=== PATIENT | female | born 1955 | race Caucasian/White ===

== ENCOUNTER 2017-03-15 15:39 | Outpatient (CLI) | payer BC | END 2017-03-15 15:40 | disposition home or self-care (01) | LOC: BICMAMMO 15:39 | PROVIDERS: ATTEND Family Medicine | DX: Z12.31 Encounter for screening mammogram for malignant neoplasm of breast (principal); R92.1 Mammographic calcification found on diagnostic imaging of breast | CPT/HCPCS: 77063; 77067 ==

== ENCOUNTER 2018-07-18 10:00 | Outpatient (CLI) | payer BC ==
--- NOTE | 2018-07-18 10:57 | MMO ---
Bilateral MAMMO Bilat Screen [facility]. CLINICAL HISTORY: Patient is 63 years old and is seen for screening. The patient has no family history of breast cancer. The patient has no personal history of cancer. The patient has a history of left Excisional Biopsy in 1992 - NEGATIVE. VIEWS: The views performed were: bilateral craniocaudal with tomosynthesis and bilateral mediolateral oblique with tomosynthesis. FILMS COMPARED: The present examination has been compared to prior imaging studies performed at [facility] on 01/01/2014, 01/04/2015, 01/06/2016 and 03/15/2017. MAMMOGRAM FINDINGS: There are scattered fibroglandular densities. There are benign appearing calcifications seen in both breasts. There are no suspicious masses, suspicious calcifications, or new areas of architectural distortion. IMPRESSION: THERE IS NO MAMMOGRAPHIC EVIDENCE OF MALIGNANCY. A ROUTINE FOLLOW-UP MAMMOGRAM IN 1 YEAR IS RECOMMENDED. THE RESULTS OF THIS EXAM WERE SENT TO THE PATIENT. ACR BI-RADS Category 2 - Benign finding MAMMOGRAPHY NOTE: 1. A negative mammogram report should not delay a biopsy if a dominant of clinically suspicious mass is present. 2. Approximately 10% to 15% of breast cancers are not detected by mammography. 3. Adenosis and dense breasts may obscure an underlying neoplasm.
== END 2018-07-18 10:01 | disposition home or self-care (01) ==
LOC: BICMAMMO 10:00
PROVIDERS: ATTEND Family Medicine
DX: Z12.31 Encounter for screening mammogram for malignant neoplasm of breast (principal)
CPT/HCPCS: 77063; 77067

== ENCOUNTER 2019-11-06 16:33 | Outpatient (CLI) | payer BC ==
--- NOTE | 2019-11-06 16:50 | RAD ---
XR Knee Rt 3 View HISTORY: Right knee pain FINDINGS: No fracture or dislocation is identified. A superior-anterior patellar enthesophyte is present. No shala int effusion is seen.
== END 2019-11-06 16:34 | disposition home or self-care (01) ==
LOC: BICRAD 16:33
PROVIDERS: ATTEND Family Medicine
DX: M25.561 Pain in right knee (principal); M76.9 Unspecified enthesopathy, lower limb, excluding foot

== ENCOUNTER 2020-06-17 10:51 | Outpatient (CLI) | payer MEDICARE ==
[2020-06-17 12:37] LABS: #Eosinphils 0.3 10x3/uL (0.0-0.5); #Monocytes 0.5 10x3/uL (0.0-1.1); #Neutrophils 3.2 10x3/uL (1.5-8.4); %Basophils 0.7 % (0.0-2.0); %Eosinophils 5.2 % (0.0-6.0); %Lymphocytes 26.9 % (18.0-47.0); %Monocytes 8.1 % (0.0-10.0); %Neutrophils 58.4 % (40.0-75.0); Hemoglobin 14.5 g/dL (12.0-15.5); Mean Corpuscular HGB CONC 34.6 g/dL (32.0-36.0); Mean Corpuscular Volume 92.5 fl (81.6-98.3); Platelet Count 265 10x3/uL (150-450); Red Blood Cell (RBC) Count 4.53 10x6/uL (3.90-5.03); White Blood Cell (WBC) Count 5.5 10x3/uL (3.5-10.5)
[2020-06-17 16:03] LABS: Anion Gap 17 mmol/L (10-20); BUN (Urea Nitrogen) 14 mg/dL (9.8-20.1); Calc. Creatinine Clearance 0 mL/min (70-130); Carbon Dioxide 22 mmol/L (23-31); Chloride 106 mmol/L (98-107); Glucose 97 mg/dL (80-115); Potassium 4.6 mmol/L (3.5-5.1); Sodium 140 mmol/L (136-145)
[2020-06-18 01:47] LABS: SARS-CoV-2 PCR by NAA Not Detected (NotDetected)
== END 2020-06-17 10:52 | disposition home or self-care (01) ==
LOC: LABBT 10:51
PROVIDERS: ATTEND Orthopaedic Surgery
DX: Z01.818 Encounter for other preprocedural examination (principal); Z20.822 Contact with and (suspected) exposure to COVID-19; S83.241A Other tear of medial meniscus, current injury, right knee, initial encounter
CPT/HCPCS: 80048; 85025; 93005; U0003; U0005; 87635; 93010

== ENCOUNTER 2020-06-22 08:21 | Day surgery (SDC) | payer MEDICARE ==
[2020-06-21 10:49] VITALS: BMI 28.3
[2020-06-22] MEDS ORDERED: Clindamycin/D5W 900 mg/50 ml Premix Bag ONE (09:24)
[2020-06-22] MEDS ORDERED: Clindamycin/D5W 600 mg/50 ml Premix Bag ONE (09:24)
[2020-06-22] MEDS ORDERED: PROPOFOL 20 ML ONE (10:26)
[2020-06-22] MEDS ORDERED: Fentanyl 100 MCG/2 ML VIAL ONE (11:07)
[2020-06-22] MEDS ORDERED: Bupivacaine HCl 0.5%/Epinephrine 1:200,000/PF 30 ml Vial ONE (11:28)
[2020-06-22] MEDS ORDERED: Dexamethasone 20 MG/5 ML VIAL ONE (11:28)
[2020-06-22] MEDS ORDERED: Ondansetron PF 4 MG/2 ML Vial ONE (11:28)
[2020-06-22] MEDS ORDERED: PROPOFOL 200 MG/20 ML VIAL ONE (11:28)
[2020-06-22] MEDS ORDERED: Lidocaine 1% PF 5 ML VIAL ONE (11:28)
[2020-06-22] MEDS ORDERED: Lidocaine 2% w/Epinephrine 1:200K 20 ML VIAL ONE (11:28)
[2020-06-22] MEDS ORDERED: Ketorolac Tromethamine 30 MG/ML VIAL ONE (11:28)
== END 2020-06-22 14:48 | disposition home or self-care (01) ==
LOC: SDC 08:21
PROVIDERS: ATTEND Orthopaedic Surgery
PROC: 0SBC4ZZ Excision of Right Knee Joint, Percutaneous Endoscopic Approach (ICD-10-PCS; principal; 2020-06-22)
DX: S83.241A Other tear of medial meniscus, current injury, right knee, initial encounter (principal); I10 Essential (primary) hypertension; E78.5 Hyperlipidemia, unspecified; Z79.899 Other long term (current) drug therapy; Z88.0 Allergy status to penicillin; Z88.8 Allergy status to other drugs, medicaments and biological substances
CPT/HCPCS: J1100; J1885; J2405; J2704; J3010; J3490